=== PATIENT | female | born 1975 | race Caucasian/White ===

== ENCOUNTER 2021-10-14 15:56 | Outpatient (CLI) | payer OTHER, SELFPAY ==
--- NOTE | 2021-10-14 16:09 | CT_ITS ---
COMPUTED TOMOGRAPHY OF THE RIGHT LOWER EXTREMITY WITHOUT CONTRAST ADMINISTRATION OF 1610 HOURS ON 10/14/2021: CLINICAL: VARUS DEFORMITY RT KNEE PROCEDURE: Helical computed tomography of the right lower extremity was performed without contrast administration and was demonstrated in the axial, coronal, and sagittal projections. FINDINGS: There is a mild varus deformity of the right knee. There is no evidence of fractures or dislocations of the osseous structures of the right lower extremity. There is no residue of an old fracture. There is a laterally angulated alignment of the distal right tibia and fibula and ankle-this may be congenital. The right hip joint is in normal position and has normal lack of angulation. The surrounding soft tissues are normal. CT/Extremity Lower without Contra IMPRESSION: 1. Mild varus deformity of the right knee with laterally angulated alignment of the distal right tibia and fibula and ankle--may be congenital. 2. No fractures or dislocations or the residue of old fractures. 3. Normal-appearing right hip joint--in normal position. 4. No other osseous abnormalities. 5. Normal surrounding soft tissues. Electronically Signed: Michael Palomo MD at 19:42 EDT ,
== END 2021-10-14 23:59 | disposition home or self-care (01) ==
LOC: CT 15:58
PROVIDERS: PCP Internal Medicine; Visit Provider Specialist
DX: M21.161 Varus deformity, not elsewhere classified, right knee (principal)
CPT/HCPCS: 73700